=== PATIENT | female | born 1955 | race Caucasian/White ===

== ENCOUNTER 2017-04-21 13:50 | Emergency (ER) | payer OTHER ==
[2017-04-21 14:05] VITALS: BP 136/97
[2017-04-21 14:49] LABS: CHLORIDE,CL 107 mEq/L (98-106); SODIUM,NA 144 mEq/L (136-145)
--- NOTE | 2017-04-21 18:21 | EDM.PDOC ---
ED HPI GENERAL MEDICAL PROBLEM - General Chief Complaint: Abdominal Pain Stated Complaint: ABD PAIN Time Seen by Provider: 04/21/17 15:20 Source of Information: Reports: Patient History Limitations: Reports: No Limitations - History of Present Illness INITIAL COMMENTS - FREE TEXT/NARRATIVE: Sara is a 61 yo female who presents to the ER with complaints of abdominal pain /pressure. She admits it has been ongoing for the last few years and has been seen at [place] for it as well. States she feels like her insides are shifting around or are going to fall out. She admits no one has been able to find out what is wrong with her. Presently she admits she feels fine if she is lying down. States she has underwent CT scan, colonoscopy, EGD, appointments with gastroenterology and nothing has been found. Dr. Duncan did an exploratory surgery as well. She states she pain currently is a lot better. Admits it was so bad this morning she was crying from it and felt she needed to be seen. Abdominal Pain Score (Numeric/FACES): 6 - Related Data Allergies Allergy/AdvReac Type Severity Reaction Status Date / Time ampicillin Allergy Hives Verified 04/21/17 14:06 Home Meds: Home Meds Ascorbate Calcium [Vitamin C] 1,000 mg PO DAILY 04/21/17 [History] Cholecalciferol (Vitamin D3) [Vitamin D3] 10,000 unit PO DAILY 04/21/17 [History ] Zinc 50 mg PO DAILY 04/21/17 [History] Past Medical History HEENT History: Reports: Impaired Vision [employer] History: Reports: - Past Surgical History HEENT Surgical History: Reports: Tonsillectomy GI Surgical History: Reports: Appendectomy, Cholecystectomy, Other (See Below) Other GI Surgeries/Procedures: PARTIAL BOWEL RESECTION Social & Family History - Tobacco Use Smoking Status *Q: Never Smoker - Caffeine Use Caffeine Use: Reports: Tea, Other Other Caffeine Use: CHOCOLATE - Recreational Drug Use Recreational Drug Use: No ED ROS GENERAL - Review of Systems Review Of Systems: See Below Constitutional: Reports: Weakness, Fatigue, Weight Gain HEENT: Reports: No Symptoms Respiratory: Reports: Shortness of Breath Cardiovascular: Reports: No Symptoms Endocrine: Reports: Fatigue GI/Abdominal: Reports: Abdominal Pain, Constipation, Diarrhea, Distension. Denies: Bloody Stool, Hematemesis, Melena, Nausea, Vomiting : Reports: No Symptoms Musculoskeletal: Reports: Shoulder Pain, Back Pain, Muscle Stiffness Skin: Reports: No Symptoms Neurological: Reports: No Symptoms ED EXAM, GI/ABD - Physical Exam Exam: See Below Exam Limited By: No Limitations General Appearance: Alert, No Apparent Distress, Other (sitting in bed visiting with nurse. No obvious sign of discomfort. ) Eyes: Bilateral: Normal Appearance Head: Atraumatic, Normocephalic Neck: Normal Inspection, Supple Respiratory/Chest: No Respiratory Distress, Lungs Clear, Normal Breath Sounds, No Accessory Muscle Use Cardiovascular: Regular Rate, Rhythm, No Edema, No Murmur GI/Abdominal Exam: Normal Bowel Sounds, Soft, No Organomegaly, Tender (mild suprapubic ) Extremities: Normal Inspection Neurological: Alert, Oriented Psychiatric: Normal Affect, Normal Mood Skin Exam: Warm, Dry, Intact Course - Vital Signs Last Recorded V/S: Last Vital Signs Temp 97.8 F 04/21/17 13:56 Pulse 80 04/21/17 13:56 Resp 20 04/21/17 13:56 BP 136/97 H 04/21/17 13:56 Pulse Ox 98 04/21/17 13:56 - Orders/Labs/Meds Labs: Laboratory Tests 04/21/17 04/21/17 04/21/17 Range/Units 14:30 14:30 14:30 WBC 6.0 (5.0-10.0) 10^3/uL RBC 4.59 (4.00-5.50) 10^6/uL Hgb 14.4 (12.0-16.0) g/dL Hct 43.0 (37.0-47.0) % MCV 93.7 (82.0-94.0) fL MCH 31.4 (27.0-32.0) pg MCHC 33.5 (33.0-38.0) g/dL RDW Coeff of [place] 12.9 (11.0-15.0) % Plt Count 201 (150-400) 10^3/uL Neut % (Auto) 65.1 (35-85) % Lymph % (Auto) 23.2 (10-55) % [place] % (Auto) 9.7 (0-16) % Eos % (Auto) 1.8 (0-5) % Baso % (Auto) 0.2 (0-3) % Neut # (Auto) 3.90 (1.80-7.00) 10^3/uL Lymph # (Auto) 1.39 (1.00-4.80) 10^3/uL [place] # (Auto) 0.58 (0.00-0.80) 10^3/uL Eos # (Auto) 0.11 (0.00-0.45) 10^3/uL Baso # (Auto) 0.01 10^3/uL Sodium 144 (136-145) mEq/L Potassium 3.9 (3.5-5.0) mEq/L Chloride 107 H (98-106) mEq/L Carbon Dioxide 27 (21-32) mmol/L BUN 15 (7-18) mg/dL Creatinine 0.9 (0.6-1.0) mg/dL Est Cr Clr Drug Dosing 67.05 mL/min Estimated GFR (MDRD) > 60 (>=60) mL/min Glucose 97 (75-99) mg/dL Calcium 9.2 (8.4-10.1) mg/dL Magnesium 2.0 (1.8-2.4) mg/dL Total Bilirubin 0.4 (0.0-1.0) mg/dL AST 19 (15-37) U/L ALT 25 (12-78) U/L Alkaline Phosphatase 48 (46-116) U/L C-Reactive Protein < 0.2 L (0.2-0.8) mg/dL Total Protein 7.3 (6.4-8.2) g/dL Albumin 3.9 (3.4-5.0) g/dL Amylase 69 (25-115) U/L Urine Color Light yellow (YELLOW) Urine Appearance Clear (CLEAR) Urine pH 5.5 (4.5-8.0) Ur Specific [place] 1.002 L (1.003-1.020) Urine Protein Negative (NEGATIVE) mg/dL Urine Glucose (UA) Negative (NEGATIVE) mg/dL Urine Ketones Negative (NEGATIVE) mg/dL Urine Occult Blood Negative (NEGATIVE) Urine Nitrite Negative (NEGATIVE) Urine Bilirubin Negative (NEGATIVE) Urine Urobilinogen 0.2 (0.2-1.0) EU/dL Ur Leukocyte Esterase Negative (NEGATIVE) Urine RBC Not seen (0-5) /HPF Urine WBC Not seen (0-5) /HPF Departure - Departure Time of Disposition: 16:30 Disposition: Home, Self-Care 01 Condition: Good Clinical Impression: Abdominal pain Qualifiers: Abdominal location: generalized Qualified Code(s): R10.84 - Generalized abdominal pain - Discharge Information Instructions: Abdominal Pain, Adult, [id number] Referrals: Lacey Fatima PA [Family Provider] - Forms: ED Department Discharge Additional Instructions: 1) MRI in [place] next week Thursday the at 8:10am. 2) Recommend wearing the abdominal binder for support 3) Advise if symptoms worsen or any concerns, recommend returning for reevaluation. - Problem List & Annotations (1) Abdominal pain SNOMED Code(s): 33380751 Code(s): R10.9 - UNSPECIFIED ABDOMINAL PAIN Status: Acute Qualifiers: Abdominal location: generalized Qualified Code(s): R10.84 - Generalized abdominal pain - Problem List Review Problem List Initiated/Reviewed/Updated: Yes - Assessment/Plan Plan: Laboratory work was grossly unremarkable. Discussed further testing. Reviewed all previous tests available to us with Sara. Advised may proceed with scheduling MRI of the abdomen/pelvis. Reassured no physical findings have been found with a multitude of testing. Will discharge at this time.
== END 2017-04-21 16:40 | disposition home or self-care (01) ==
LOC: CC.ED 13:50
DX: R10.84 Generalized abdominal pain (principal); H54.7 Unspecified visual loss; Z88.1 Allergy status to other antibiotic agents; Z79.899 Other long term (current) drug therapy
CPT/HCPCS: 36415; 80053; 81001; 82150; 83735; 85025; 86140; 99284

== ENCOUNTER → 2021-06-20 | Day surgery (SDC) | payer SELFPAY ==
[~2021-06-20] MED LIST: Bacitracin/Neomycin/Polymyxin B Oint 0.9 GM U/D Packet ONE; Dexamethasone 4 MG/ML SDV ONE; Ketorolac 30 MG/ML SDV ONE; Lactated Ringers 1,000 ML IV SCH; Lidocaine 1% with EPINEPHrine 1:100,000 20 ML MDV ONE; Midazolam 1 MG/ML 2 ML SDV ONE; Rocuronium 50 MG/5 ML Vial ONE; fentaNYL 100 MCG/2 ML SDV ONE
--- NOTE | 2021-06-20 11:58 | OR ---
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 SURGEON: Thomas Peña MD PROCEDURE: WIDE LOCAL EXCISION OF PILAR SQUAMOUS CARCINOMA OF THE SCALP. ANESTHESIA: Local plus MAC. SPECIMEN: Scalp lesion. INDICATIONS: This 65-year-old female had a procedure done last week where primary care had done an excision of what was thought to be a common cyst of the scalp. This however on pathology came back as proliferative pilar squamous cell carcinoma. This is a very rare occurrence and there are several options for the current treatment. I discussed with her wide local excision of this. She is opposed to any postoperative radiation as a treatment. I feel I got a wide excision around this cyst. DESCRIPTION OF PROCEDURE: After adequate preparation, a 0.5 cm to 1 cm margin on either side of the previous incision where the cyst had been drained was made. This elliptical incision was then carried down full thickness all the way to the gale[place] of the scalp. I was able to get as deep as I could. There was no obvious infiltration on the deep side, however, it would be difficult to get margins, but I did get almost a centimeter margins around what I could get. There is no other way to get deeper margins. Hemostasis was controlled with cautery. The wound was closed using interrupted 2-0 nylon sutures. The patient was taken to recovery room. BRYCE/MISSY /[id number]
[2021-06-20 13:20] VITALS: BP 124/68; PULSE 71
== END ==
LOC: CC.SDS 09:02
PROVIDERS: ATTEND Surgery
DX: C44.42 Squamous cell carcinoma of skin of scalp and neck (principal); I10 Essential (primary) hypertension; E78.5 Hyperlipidemia, unspecified; E66.9 Obesity, unspecified; Z88.1 Allergy status to other antibiotic agents; Z79.899 Other long term (current) drug therapy; Z79.82 Long term (current) use of aspirin; Z90.49 Acquired absence of other specified parts of digestive tract; Z98.890 Other specified postprocedural states
CPT/HCPCS: 11623; J1100; J1885; J2250; J3010; J7120

== ENCOUNTER → 2022-04-25 | Day surgery (SDC) | payer MEDICARE, OTHER ==
[~2022-04-25] MED LIST changes: -Bacitracin/Neomycin/Polymyxin B Oint 0.9 GM U/D Packet ONE; -Dexamethasone 4 MG/ML SDV ONE; +Flumazenil 0.1 MG/ML 10 ML MDV ONE; +Ketamine 200 MG/20 ML MDV ONE; -Ketorolac 30 MG/ML SDV ONE; -Lidocaine 1% with EPINEPHrine 1:100,000 20 ML MDV ONE; +Lidocaine 2% 20 ML MDV ONE; +Propofol 200 MG/20 ML SDV ONE; -Rocuronium 50 MG/5 ML Vial ONE; -fentaNYL 100 MCG/2 ML SDV ONE; +fentaNYL 50 MCG/ML SDV ONE
[2022-04-25 11:56] VITALS: BP 121/68; PULSE 61
== END ==
LOC: CC.SDS 08:18
PROVIDERS: ATTEND Family Medicine
DX: K29.50 Unspecified chronic gastritis without bleeding (principal); K29.80 Duodenitis without bleeding; K31.89 Other diseases of stomach and duodenum; K31.819 Angiodysplasia of stomach and duodenum without bleeding; K44.9 Diaphragmatic hernia without obstruction or gangrene; F41.9 Anxiety disorder, unspecified; I10 Essential (primary) hypertension; E78.5 Hyperlipidemia, unspecified; J30.9 Allergic rhinitis, unspecified; N39.0 Urinary tract infection, site not specified; E04.1 Nontoxic single thyroid nodule; Z88.1 Allergy status to other antibiotic agents; Z79.82 Long term (current) use of aspirin; Z79.899 Other long term (current) drug therapy; Z90.49 Acquired absence of other specified parts of digestive tract; Z98.890 Other specified postprocedural states
CPT/HCPCS: 00813; 87081; J2250; J2704; J3010; J7120